=== PATIENT | male | born 1980 | race Caucasian/White ===

== ENCOUNTER 2023-08-20 11:11 | Outpatient (OUT) | payer OTHER, SELFPAY ==
--- NOTE | 2023-08-20 11:15 | US_ITS ---
[address] [address] Patient Name: AVE MONGE MRN: [id number] date: 1980 Sex: M Assigned Patient Location: US Current Patient Location: US Accession/Order Number: [id number] Exam Date: 08/20/2023 11:40 Report Date: 08/20/2023 12:41 At the request of: YAKELIN HORNE Procedure: US soft tissue head and neck EXAM: US soft tissue head and neck HISTORY: Mass Of Neck COMPARISON: None. TECHNIQUE: Grayscale and color ultrasound FINDINGS: Identified in the left submandibular region is a focal well-circumscribed mildly heterogeneous oval hypoechogenicity within the subcutaneous fat superficial to muscle measuring 4.2 x 0.7 x 3.6 cm in size. This area is hypo/isovascular to the surrounding soft tissues US/US soft tissue head and neck IMPRESSION: Focal elongated mass corresponding to the patient's palpable abnormality, nonspecific. Possibly a lipoma Electronically authenticated by: KATHYA VILLARREAL Date: 08/20/2023 12:41
== END 2023-08-20 11:12 | disposition home or self-care (01) ==
LOC: US 11:11
PROVIDERS: PCP Family Medicine; Visit Provider Family Medicine
DX: R22.1 Localized swelling, mass and lump, neck (principal)
CPT/HCPCS: 76536

== ENCOUNTER 2023-09-06 07:49 | Outpatient (OUT) | payer OTHER, SELFPAY ==
--- OUTSIDE RECORDS SUMMARY | 2023-09-06 07:51 | XMS_ITS | CCD ---
Author Organization [facility] Care Team Providers Care Account Manager Sales Representative Name Role Phone Kathya Penn Consult[employer] Unavailable DR AILYN VELAZQUEZ Primary Care Unavailable GREGORIO GUTIERREZ Attending Unavailable MATT, GREGORIO Admitting Unavailable GREGORIO GUTIERREZ Consulting Unavailable Problems Active Problems Problem Classification Problem Date Documented Da te Episodic/Chronic Chronic obstructive pulmonary disease and bronchiectasis (1 source) Bronchitis, not specified as acute or chronic; Translations: [BRONCHITIS NOT SPEC ACUTE/CHRON] Onset: 02-03-2021 Episodic Other skin disorders (1 source) Mass of neck; Translations: [Localized swelling, mass and lump, neck] 08-06-2023 Episodic Other skin disorders (1 source) Localized swelling, mass and lump, neck; Translations: [Swelling, mass, or lump in head and neck] 08-06-2023 Episodic Unclassified (2 sources) COUGH, UNSPECIFIED; Translations: [COUGH, UNSPECIFIED] Onset: 02-03-2021 Viral infection (1 source) COVID-19; Translations: [COVID-19] Onset: 02-03-2021 Past or Other Problems Problem Classification Problem Date Documented Da te Episodic/Chronic Unclassified (1 source) COUGH, UNSPECIFIED; Translations: [COUGH, UNSPECIFIED] Onset: 02-02-2021 Results Test Name Value Interpretation Reference Range Facil ity XR CHEST 1 Von 02-02-2021 XR CHEST 1 V EXAM: XR CHEST 1 V HISTORY: . COUGH . COMPARISON: None. TECHNIQUE: AP portable upright view of the chest FINDINGS: Heart is normal in size. There is slight prominence of the bronchovascular markings. Lungs are free of focal infiltrates. No effusions are noted. Impression: 1. Slight prominence of the bronchovascular markings. Findings could represent bronchitis or an early interstitial pneumonitis. 2. No consolidation noted. Electronically authenticated by: KATHYA PENN Date: 2021-02-02 12:34 Normal [facility] Vital Signs Date Time Vital Sign Value Performing Clinician Mirian chau 08-06-2023 09:46-0400 Body height 170.18 cm [facility] 08-06-2023 09:46-0400 Body mass index (BMI) [Ratio] 32.5 kg/m2 [facility] 08-06-2023 09:46-0400 Body weight 94.34 kg [facility] 08-06-2023 09:46-0400 Diastolic blood pressure 72 mm[Hg] [facility] 08-06-2023 09:46-0400 Heart rate 59 /min [facility] 08-06-2023 09:46-0400 Systolic blood pressure 117 mm[Hg] [facility] Encounters Encounter Date Encounter Type Care Provider Facility Start: 08-06-2023 End: 08-06-2023 ambulatory [facility] Work Phone: Start: 08-06-2023 End: 08-06-2023 Patient encounter procedure [facility] Work Phone: Start: 02-02-2021 End: 02-02-2021 ambulatory [facility] Facility:H1 Plan of Treatment Date Care Activity Detail Author US Thyroid gland [facility] Payers Date Payer Category Payer Unknown [id number] 1961 Private Health Insurance [id number] Social History Date Type Detail Facility Start: 08-06-2023 Tobacco smoking stat us NHIS Never smoked tobacco (finding) [facility] Start: 1980 Sex Assigned At Male F [facility] Evaluation note Note Date & Type Note Facility Evaluation note Diagnosis Onset Date Mass in neck acute [facility] Work Phone: Summary Purpose Family History No Family History Records Found Advance Directives Advance Directive Response Recorded Date/ Time Advance Directives No August 06, 2023 9:39am Chief Complaint and Reason for Visit Chief Complaint lump on face, right jawline Reason for Visit Mass in neck Additional Source Comments (unrecognized sect ion and content) No Status Records Found INFORMATION SOURCE (unrecogn ized section and content) DATE CREATED AUTHOR 02/03/2021 [facility] Care Teams (unrecognized sec tion and content) Team Status: Active Member Role Status Dates Ailyn Velazquez MD Primary Care Provider Active Team Status: Inactive Member Role Status Dates Ailyn Velazquez MD Primary Care Provide r, Attending Provider Active Start: August 06, 2023 End: August 06, 2023 Goals (unrecognized section and content) Goals may be documented in a n alternate section FOR RECORDS PERTAINING TO PATIENTS WHO ARE OR HAVE BEEN ENROLLED IN A CHEMICAL DEPENDENCY/SUBSTANCEABUSE PROGRAM, SOME INFORMATION MAY BE OMITTED. This clinical summary was aggregated from multiple sources. Caution should be exercised in using it in the provision of clinical care. This summary normalizes information from multiple sources, and as a consequence, information in this document may materially change the coding, format and clinical context of patient data. In addition, data may be omitted in some cases. CLINICAL DECISIONS SHOULD BE BASED ON THE PRIMARY CLINICAL RECORDS. [facility] [employer] [facility]. provides no warranty or guarantee of the accuracy or completeness of information in this document.
--- NOTE | 2023-09-06 08:22 | CT_ITS ---
[address] [address] Patient Name: AVE MONGE MRN: [id number] date: 1980 Sex: M Assigned Patient Location: CT Current Patient Location: CT Accession/Order Number: [id number] Exam Date: 09/06/2023 08:10 Report Date: 09/06/2023 09:17 At the request of: YAKELIN HORNE Procedure: CT soft tissue neck w con CT soft tissue neck w con, 09/06/2023 8:10 AM EDT INDICATION: Mass Of Neck R22.1 COMPARISON: Prior ultrasound of the neck dated 08/20/2023 TECHNIQUE: CT imaging of the neck were acquired with contrast. Supplemental 2D reformatted images were generated and reviewed as needed. Dose reduction techniques were achieved by using automated exposure control and/or adjustment of mA and/or kV according to patient size and/or use of iterative reconstruction technique. FINDINGS: No abnormality of the base of skull is noted. The nasopharynx, oropharynx, hypopharynx and oral cavity are unremarkable. The parotids, submandibular glands are unremarkable. Fat-containing lesion along the left side of cheek measuring 2.2 x 1.3 x 2.7 cm (AP, transverse, cc) is most likely consistent with a lipoma. No heterogeneity or thick septum is noted. The larynx is unremarkable. No abnormality of paraglottic fat is noted. There is no lymph node enlargement by size criteria. No retropharyngeal lymph node is noted. The thyroid gland is homogeneous. The visualized portions of lungs are unremarkable. There is no suspicious osteolytic or osteoblastic lesion. CT/CT soft tissue neck w con IMPRESSION: Fat-containing lesion along the left side of cheek most likely consistent with a lipoma. Electronically authenticated by: ESHA FALL Date: 09/06/2023 09:17
== END 2023-09-06 07:50 | disposition home or self-care (01) ==
LOC: CT 07:49
PROVIDERS: PCP Family Medicine; Visit Provider Family Medicine
DX: R22.1 Localized swelling, mass and lump, neck (principal); D17.0 Benign lipomatous neoplasm of skin and subcutaneous tissue of head, face and neck
CPT/HCPCS: 70491; Q9967

== ENCOUNTER 2024-01-07 11:08 | Outpatient (OUT) | payer OTHER, SELFPAY ==
--- NOTE | 2024-01-07 11:10 | US_ITS ---
The [address] [address] Patient Name: AVE MONGE MRN: [id number] date: 1980 Sex: M Assigned Patient Location: US Current Patient Location: US Accession/Order Number: [id number] Exam Date: 01/07/2024 11:15 Report Date: 01/07/2024 15:55 At the request of: KRYSTLE HARDWICK Procedure: US soft tissue head and neck EXAMINATION: US soft tissue head and neck HISTORY: Mass Of Left Parotid Gland COMPARISON: CT soft tissue neck 09/06/2023, ultrasound soft tissue head and neck 08/20/2023 FINDINGS: Stable heterogeneous hypoechoic mass within versus adjacent the left parotid gland, 3.9 x 1.0 x 3.4 cm. Echogenicity is similar to adjacent fat. No significant internal blood flow on color Doppler. US/US soft tissue head and neck IMPRESSION: 1. Grossly stable mass within versus adjacent the left parotid gland; nonspecific. Given its fatty appearance this may represent a lipoma. Consider tissue sampling. Electronically authenticated by: JAE MELISSA Date: 01/07/2024 15:55
--- OUTSIDE RECORDS SUMMARY | 2024-01-07 11:29 | XMS_ITS | CCD ---
Author Organization [facility] Care Team Providers Care Hospital Liaison Name Role Phone Kathya Penn Consult[employer] Unavailable DR YAKELIN VELAZQUEZ Primary Care Unavailable GREGORIO GUTIERREZ Attending Unavailable GREGORIO GUTIERREZ Admitting Unavailable GREGORIO GUTIERREZ Consulting Unavailable KRYSTLE HARDWICK Attending Unavailable YAKELIN VELAZQUEZ Referring Unavailable Problems Active Problems Problem Classification Problem [...] by: KATHYA PENN Date: 2021-02-02 12:34 Normal [facility] Vital Signs Date Time Vital Sign Value Performing Clinician Mirian chau 08-06-2023 09:46-0400 Body height 170.18 cm [facility] 08-06-2023 09:46-0400 Body mass index (BMI) [Ratio] 32.5 kg/m2 [facility] 08-06-2023 09:46-0400 Body weight 94.34 kg [facility] 08-06-2023 09:46-0400 Diastolic blood pressure 72 mm[Hg] [facility] 08-06-2023 09:46-0400 Heart rate 59 /min [facility] 08-06-2023 09:46-0400 Systolic blood pressure 117 mm[Hg] [facility] Encounters Encounter Date Encounter Type Care Provider Facility Start: 09-09-2023 End: 09-09-2023 ambulatory KRYSTLE ZACARIASMIS Not Available Start: 08-06-2023 End: 08-06-2023 ambulatory [facility] Work Phone: Start: 08-06-2023 End: 08-06-2023 Patient encounter procedure [facility] Work Phone: Start: 02-02-2021 End: 02-02-2021 ambulatory Kathya Penn Facility: Plan of Treatment Date Care Activity Detail Author US Thyroid gland [facility] Payers Date Payer Category Payer Unknown [id number] 1980 Unknown [id number] 1961 Private Health Insurance [id number] Social History Date Type Detail Facility Start: 08-06-2023 Tobacco smoking stat us WAIS Never smoked tobacco (finding) [facility] Start: 1980 Sex Assigned At Male F [facility] Evaluation note Note Date & Type Note Facility Evaluation note Diagnosis Onset Date Mass in neck acute [facility] Work Phone: Summary Purpose Family History No Family History Records FoundNo Family History Records Found Advance Directives No Advanced Directives Records Found Advance Directive Response Recorded Date/ Time Advance Directives No August 06, 2023 9:39am Chief Complaint and Reason for Visit Chief Complaint lump on face, right jawline Reason for Visit Mass in neck Additional Source Comments (unrecognized sect ion and content) No Status Records FoundNo Status Records Found INFORMATION SOURCE (unrecogn ized section and content) DATE CREATED AUTHOR 02/03/2021 [facility] DATE CREATED AUTHOR AUTHOR'S ORGANIZ ATION 09/11/2023 [facility] [employer] Care Teams (unrecognized sec tion and content) Team Status: Active Member Role Status Dates Yakelin Velazquez MD Primary Care Provider Active Team Status: Inactive Member Role Status Dates Yakelin Velazquez MD Primary Care Provide r, Attending [...] BE BASED ON THE PRIMARY CLINICAL RECORDS. [facility] [employer] [facility]. provides no warranty or guarantee of the accuracy or completeness of information in this document.
== END 2024-01-07 11:09 | disposition home or self-care (01) ==
LOC: US 11:08
PROVIDERS: PCP Family Medicine; Visit Provider Otolaryngology
DX: K11.8 Other diseases of salivary glands (principal)
CPT/HCPCS: 76536